=== PATIENT | male | born 1960 | race Caucasian/White ===

== ENCOUNTER → 2018-02-01 | Outpatient (REF) ==
[~2018-02-01] MED LIST: CYCL10TA29 PO; DICL-195 PO; GEMF600T91 PO; GLIP-154 PO; HYDR-4309 PO; LISI-362 PO; METF-410 PO
== END ==
LOC: AUD 11:00
PROVIDERS: ATTEND Internal Medicine
DX: Z01.10 Encounter for examination of ears and hearing without abnormal findings (principal)
CPT/HCPCS: 92552

== ENCOUNTER 2018-11-10 12:32 | Emergency (ER) | payer BC, OTHER ==
[~2018-11-10 12:32] MED LIST changes: -GEMF600T91 PO; +GEMF600T96 PO; -HYDR-4309 PO; +HYDR-653 PO; -METF-410 PO; +METF-450 PO
[2018-11-10] MEDS ORDERED: GLY5 PO (12:50)
[2018-11-10] MEDS ORDERED: METO25TA23 PO (12:50)
[2018-11-10] MEDS ORDERED: ENT KIT ONE (12:55)
--- NOTE | 2018-11-10 12:55 | ER Report ---
History and Physical Time Seen By MD: 12:54 Hx. of Stated Complaint: 2ND BLOOD NOSE TODAY, THIS EPISODE GOING FOR ALMOST 2 HOURS, PT REPORTS ONLY TAKING BABY ASPIRIN HPI/ROS CHIEF COMPLAINT: Nosebleed HISTORY OF PRESENT ILLNESS: 58-year-old male patient presents to emergency room with complaint of nosebleed. Patient states that he had a nosebleed at 5:30 this morning which he was able to get stopped using toilet paper as packing. Patient work about 10:30 and had his nose started bleeding again. He states he tried packing it he's tried lots of things but is not been able to get the bleeding stopped. Patient denies any nausea, vomiting or diarrhea. Patient states he has felt lightheaded. Patient states he does not typically get headaches like this. He hasn't taken any medication for this. REVIEW OF SYSTEMS: Respiratory: No cough, no dyspnea. Cardiovascular: No chest pain, no palpitations. Gastrointestinal: No vomiting, no abdominal pain. Musculoskeletal: No back pain. Allergies: Coded Allergies: No Known Drug Allergies (Unverified , 11/10/18) Home Meds Reported Medications Glyburide (GLYBURIDE) 5 Mg Tab, 1 TAB PO DAILY 11/10/18 Metoprolol Succinate (METOPROLOL SUCCINATE) 25 Mg Tab.er.24h, 1 TAB PO DAILY 11/10/18 Lisinopril (LISINOPRIL) 10 Mg Tablet, 10 MG PO QDAY, TAB 11/05/16 Glipizide (GLIPIZIDE) 10 Mg Tablet, 10 MG PO BID 11/05/16 Gemfibrozil (GEMFIBROZIL) 600 Mg Tablet, 600 MG PO BID 11/05/16 Metformin Hcl (METFORMIN HCL) 500 Mg Tablet, 2 TAB PO BID, TAB 11/05/16 Discontinued Scripts Hydrocodone Bit/Acetaminophen (NORCO 5-325 TABLET) 1 Each Tablet, 1 EACH PO Q4- 6H PRN for PAIN, #20 TAB Prov:GALINDO WEBER [facility] 11/05/16 Cyclobenzaprine Hcl (CYCLOBENZAPRINE HCL) 10 Mg Tablet, 5-10 MG PO TID PRN for MUSCLE SPASMS, #20 TAB Prov:GALINDO WEBER 11/05/16 Diclofenac Sodium (DICLOFENAC SODIUM) 75 Mg Tablet.dr, 75 MG PO BID, #20 TAB Prov:GALINDO WEBER 11/05/16 Past Medical/Surgical History Patient has a past medical history of hypertension, diabetes. Patient has a surgical history of surgery for plantar fasciitis. Reviewed Nurses Notes: Yes Constitutional Vital Sign - Last 24 Hours 11/10/18 11/10/18 11/10/18 11/10/18 12:44 12:46 13:00 13:15 Pulse 115 127 116 Resp 16 B/P (MAP) 145/112 145/112 (123) 144/109 (121) Pulse Ox 96 92 95 11/10/18 11/10/18 11/10/18 11/10/18 13:30 14:00 14:02 14:15 Pulse 110 110 114 B/P (MAP) 125/83 (97) 112/88 (96) Pulse Ox 90 93 90 11/10/18 11/10/18 11/10/18 11/10/18 14:30 14:45 15:00 15:15 Pulse 117 115 112 112 B/P (MAP) 124/107 (113) 107/76 (86) Pulse Ox 91 89 89 93 11/10/18 11/10/18 11/10/18 11/10/18 15:30 15:45 16:00 16:15 Pulse 115 117 107 B/P (MAP) 127/72 (90) 87/67 (74) Pulse Ox 93 91 89 90 Physical Exam General Appearance: The patient is alert, has no immediate need for airway protection and no current signs of toxicity. Initial blood pressure was 140/110. ENT: Tympanic membranes are pearly-ko, auditory canals are patent, mixed mucous membranes are moist. Patient does have blood coming out of both nostrils. I am unable to identify the source of bleeding. Respiratory: Chest is non tender, lungs are clear to auscultation. Cardiac: regular rate and rhythm Gastrointestinal: Abdomen is soft and non tender, no masses, bowel sounds normal. Musculoskeletal: Neck: Neck is supple and non tender. Extremities have full range of motion and are non tender. Skin: No rashes or lesions. DIFFERENTIAL DIAGNOSIS: After history and physical exam differential diagnosis was considered for epistaxis, hypertension. Medical Decision Making ED Course/Re-evaluation ED Course Patient was admitted to the exam room, history and physical were obtained. Differential diagnoses were considered. On examination patient does have bleeding coming from both right and left nostrils. Patient had a clamp placed and I was able to remove that and spray and Jorge-Synephrine into both nostrils. Clamp was replaced and monitored. I did note that when he lifted his head up that he did have blood became down the back of the throat. I left the clamp in place for approximately 10 minutes. I did go in and reevaluated. At that time he was having persistent bleeding, blood pressure had returned to normal, 120/80. I did spray some Jorge-Synephrine again into the nose and replaced clamp. On reeval uation the patient having persistent bleeding. At that time I did take epinephrine and aspirated on to a cottonball and placed into the left nostril. On evaluation the right nostril the mucous membranes appear to be swollen, however there does not appear to be any bleeding. I left that in place for approximately 15 minutes. I then removed it and removed a fair amount of clotting. We did monitor him for a few minutes and the bleeding started again. At that time I did replace the clamp. I did order TXA at that time. I did soak to cotton balls with 3 cc of takes a. I was placed into both nostrils and left for approximately 30 minutes. On reevaluation I was able to remove the cotton balls and patient had no bleeding. We continue to monitor him for [address] which time he had recurrence of bleeding from the left nostril. At that time a Rhino Rocket was placed. I did soak the cotton gauze on the outside of the rocket with TXA. I placed that without any difficulties and filled it up with air. Patient did have cessation of bleeding. Discharge instructions were written. Prior to discharge patient had recurrence of bleeding this time it was going out to the right nostril. I believe that was caused by bleeding around the packing. The packing itself had come loose and was replaced. Again it was soaked with TXA and replaced. Patient had cessation of bleeding again and felt that the packing was tighter. We continue to monitor him for approximately 30 more minutes during which time he did not have any bleeding. Patient will be discharged home at this time. He is return to the ER tomorrow to have the packing removed. He is to return to the emergency room sooner if he has recurrence of bleeding. Patient and his verbalized understanding and agreement with plan. Decision to Disposition Date: Nov 10, 2018 Decision to Disposition Time: 16:23 Depart Departure Latest Vital Signs Vital Signs Date Time Temp Pulse Resp B/P (MAP) Pulse Ox O2 Delivery O2 Flow Rate FiO2 11/10/18 16:15 90 11/10/18 16:00 107 87/67 (74) 11/10/18 12:44 16 Impression: Primary Impression: Epistaxis Condition: Improved Disposition: HOME OR SELF-CARE Patient Instructions: Nosebleed (ED) Additional Instructions: Leave packing in over night. Follow up tomorrow to get the packing removed. Return to the ER sooner if bleeding worsens. You may have normal diet and activity as tolerated tonight. GALINDO WEBER Nov 10, 2018 12:54
[2018-11-10] MEDS ORDERED: LABETALOL HCL 20 MG/4 ML SYR IVP ONE (13:20)
[2018-11-10] MEDS ORDERED: TRANEXAMIC AC 1000 MG/10ML SDV ONE (14:25)
[2018-11-10 16:00] VITALS: BP 87/67
[2018-11-10] MEDS ORDERED: LIDO/EPI 2% MDV 1:100,000 20ML INFIL ONE (17:40)
[2018-11-10] MEDS ORDERED: PHENYLEPHRINE 0.5% 15 ML BTL ONE (17:40)
[2018-11-10] MEDS ORDERED: EPINEPHrine 0.1% NA SOL 30 ML ONE (17:40)
== END 2018-11-10 17:14 | disposition home or self-care (01) ==
LOC: ER 12:56
DX: R04.0 Epistaxis (principal)
CPT/HCPCS: 30903; 99283

== ENCOUNTER 2018-11-12 10:48 | Emergency (ER) | payer BC ==
[~2018-11-12 10:48] MED LIST changes: +GLY5 PO; +METO25TA23 PO
--- NOTE | 2018-11-12 10:53 | ER Report ---
History and Physical Time Seen By MD: 10:53 HPI/ROS CHIEF COMPLAINT: Epistaxis HISTORY OF PRESENT ILLNESS: 58-year-old male patient presents to emergency room with complaint of epistaxis. Patient was seen here on . He states that he did well with a packing and takes a, however the packing fell out night. He states that he had persistent dripping throughout the day, which would come and go. He states that starting at 3:00 this morning the bleeding returned and was significant. Patient states that he has not been able to get the bleeding stopped, he denies having fevers chills or nausea. Patient denies any trauma to the nose. REVIEW OF SYSTEMS: Respiratory: No cough, no dyspnea. Cardiovascular: No chest pain, no palpitations. Gastrointestinal: No vomiting, no abdominal pain. Musculoskeletal: No back pain. Allergies: Coded Allergies: No Known Drug Allergies (Unverified , 11/12/18) Home Meds Active Scripts Cephalexin 500 Mg Tab (KEFLEX 500 MG TAB) 500 Mg Tablet, 500 MG PO Q6H, #28 TAB Prov:GALINDO WEBER 11/12/18 Reported Medications Glyburide (GLYBURIDE) 5 Mg Tab, 1 TAB PO DAILY 11/10/18 Metoprolol Succinate (METOPROLOL SUCCINATE) 25 Mg Tab.er.24h, 1 TAB PO DAILY 11/10/18 Lisinopril (LISINOPRIL) 10 Mg Tablet, 10 MG PO QDAY, TAB 11/05/16 Glipizide (GLIPIZIDE) 10 Mg Tablet, 10 MG PO BID 11/05/16 Gemfibrozil (GEMFIBROZIL) 600 Mg Tablet, 600 MG PO BID 11/05/16 Metformin Hcl (METFORMIN HCL) 500 Mg Tablet, 2 TAB PO BID, TAB 11/05/16 Discontinued Scripts Hydrocodone Bit/Acetaminophen (NORCO 5-325 TABLET) 1 Each Tablet, 1 EACH PO Q4- 6H PRN for PAIN, #20 TAB Prov:GALINDO WEBER 11/05/16 Cyclobenzaprine Hcl (CYCLOBENZAPRINE HCL) 10 Mg Tablet, 5-10 MG PO TID PRN for MUSCLE SPASMS, #20 TAB Prov:GALINDO WEBER 11/05/16 Diclofenac Sodium (DICLOFENAC SODIUM) 75 Mg Tablet.dr, 75 MG PO BID, #20 TAB Prov:GALINDO WEBER [facility] 11/05/16 Past Medical/Surgical History Patient has a past medical history of hypertension, diabetes. Patient has a surgical history of surgery for plantar fasciitis. Reviewed Nurses Notes: Yes Constitutional Vital Sign - Last 24 Hours 11/12/18 11/12/18 11/12/18 11/12/18 10:48 10:51 10:52 11:00 Pulse 135 127 Resp 18 20 B/P (MAP) 116/76 116/76 (89) 100/74 (83) Pulse Ox 95 91 11/12/18 11/12/18 11/12/18 11/12/18 11:15 11:18 11:30 11:45 Pulse 116 Resp 11 B/P (MAP) 109/71 (84) 88/77 (81) 96/54 (68) Pulse Ox 92 11/12/18 11/12/18 11/12/18 11/12/18 11:46 11:50 12:00 12:05 Pulse 111 112 111 Resp 12 32 18 B/P (MAP) 87/66 (73) Pulse Ox 95 98 94 11/12/18 11/12/18 11/12/18 11/12/18 12:15 12:20 12:25 12:30 Pulse 115 110 Resp 12 24 B/P (MAP) 92/79 (83) 97/67 (77) Pulse Ox 96 96 11/12/18 11/12/18 11/12/18 11/12/18 12:40 12:45 12:55 13:00 Pulse 100 98 Resp 31 15 B/P (MAP) 103/65 (78) 103/58 (73) Pulse Ox 93 94 11/12/18 11/12/18 11/12/18 11/12/18 13:10 13:15 13:22 13:27 Pulse 95 118 109 Resp 9 18 17 B/P (MAP) 96/65 (75) Pulse Ox 95 85 94 11/12/18 11/12/18 11/12/18 13:30 13:35 13:42 Pulse 103 Resp 13 11 B/P (MAP) 79/57 (64) 86/62 (70) Pulse Ox 94 94 Physical Exam General Appearance: The patient is alert, has no immediate need for airway protection and no current signs of toxicity. ENT: Patient has significant bleeding from the left nares. Respiratory: Chest is non tender, lungs are clear to auscultation. Cardiac: regular rhythm, patient is tachycardic at 117 bpm Gastrointestinal: Abdomen is soft and non tender, no masses, bowel sounds nor mal. Musculoskeletal: Neck: Neck is supple and non tender. Extremities have full range of motion and are non tender. Skin: No rashes or lesions. DIFFERENTIAL DIAGNOSIS: After history and physical exam differential diagnosis was considered for epistaxis, I was likely a posterior epistaxis due to the difficulty we've had with getting the bleeding stopped. Medical Decision Making Data Points Result Diagram: 11/12/18 1115 Laboratory Hematology Test 11/12/18 11:15 Red Blood Count 3.06 M/uL (4.00-5.60) Mean Corpuscular Volume 109.8 fL (80.0-96.0) Mean Corpuscular Hemoglobin 38.4 pg (26.0-33.0) Mean Corpuscular Hemoglobin Concent 35.0 g/dL (32.0-36.0) Red Cell Distribution Width 13.1 % (11.5-14.5) Mean Platelet Volume 9.1 fL (7.2-11.1) Neutrophils (%) (Auto) 77.6 % (39.4-72.5) Lymphocytes (%) (Auto) 15.4 % (17.6-49.6) Monocytes (%) (Auto) 5.9 % (4.1-12.4) Eosinophils (%) (Auto) 0.4 % (0.4-6.7) Basophils (%) (Auto) 0.7 % (0.3-1.4) Nucleated RBC Relative Count (auto) 0.0 /100WBC Neutrophils # (Auto) 14.1 K/uL (2.0-7.4) Lymphocytes # (Auto) 2.8 K/uL (1.3-3.6) Monocytes # (Auto) 1.1 K/uL (0.3-1.0) Eosinophils # (Auto) 0.1 K/uL (0.0-0.5) Basophils # (Auto) 0.1 K/uL (0.0-0.1) Nucleated RBC Absolute Count (auto) 0.00 K/uL Prothrombin Time 13.9 seconds (12.0-14.4) Prothromb Time International Ratio 1.07 Activated Partial Thromboplast Time 29 seconds (23-35) Chemistry Test 11/12/18 11:15 White Blood Count 18.2 k/uL (4.5-11.0) Red Blood Count 3.06 M/uL (4.00-5.60) Hemoglobin 11.8 g/dL (14.0-18.0) Hematocrit 33.6 % (42.0-52.0) Mean Corpuscular Volume 109.8 fL (80.0-96.0) Mean Corpuscular Hemoglobin 38.4 pg (26.0-33.0) Mean Corpuscular Hemoglobin Concent 35.0 g/dL (32.0-36.0) Red Cell Distribution Width 13.1 % (11.5-14.5) Platelet Count 179 K/uL (150-450) Mean Platelet Volume 9.1 fL (7.2-11.1) Neutrophils (%) (Auto) 77.6 % (39.4-72.5) Lymphocytes (%) (Auto) 15.4 % (17.6-49.6) Monocytes (%) (Auto) 5.9 % (4.1-12.4) Eosinophils (%) (Auto) 0.4 % (0.4-6.7) Basophils (%) (Auto) 0.7 % (0.3-1.4) Nucleated RBC Relative Count (auto) 0.0 /100WBC Neutrophils # (Auto) 14.1 K/uL (2.0-7.4) Lymphocytes # (Auto) 2.8 K/uL (1.3-3.6) Monocytes # (Auto) 1.1 K/uL (0.3-1.0) Eosinophils # (Auto) 0.1 K/uL (0.0-0.5) Basophils # (Auto) 0.1 K/uL (0.0-0.1) Nucleated RBC Absolute Count (auto) 0.00 K/uL Prothrombin Time 13.9 seconds (12.0-14.4) Prothromb Time International Ratio 1.07 Activated Partial Thromboplast Time 29 seconds (23-35) Coagulation Test 11/12/18 11:15 Prothrombin Time 13.9 seconds Prothromb Time International Ratio 1.07 Activated Partial Thromboplast Time 29 seconds ED Course/Re-evaluation ED Course Patient was admitted to exam room, history and physical were obtained. Differential diagnoses were considered. On examination patient did have significant amounts of blood draining out of the left nostril. With the extremes ahead with him on and the challenges to get the bleeding stopped I did pack his nose with cotton balls the refused with TXA. I left those in place, an IV was started and patient received 2 L of normal saline, a CBC and PT, PTT were done. Patient had an elevated white count of 18,000, he was very slightly anemic with a hemoglobin of 11. INR was 1.04. We'll get those results back a did discuss the case with Dr. Tsang, ENT at [facility]. It was his recommendation to place 2 of the Rhino Rocket in the nose that expand his of the source fluid. He then recommended that I infused denies use with Jorge-Synephrine to help with getting the expansion of the packing. That was done and we were able to get the bleeding under control. I monitored the patient for an hour. During that time he had no recurrence of the bleeding. I did get him up and have him walk around the unit again with no recurrence of the bleeding. Patient did have intermittent low blood pressures. Patient was not dizzy and did not have any chest pain. Patient was discharged home. They're to return with any worsening of his condition. Patient and verbalized understanding and agreement. They're to follow-up with Dr. Tsang down in [place] or Dr. Baker here in [place]. They're given both of their phone numbers. Decision to Disposition Date: Nov 12, 2018 Decision to Disposition Time: 13:26 Depart Departure Latest Vital Signs Vital Signs Date Time Temp Pulse Resp B/P (MAP) Pulse Ox O2 Delivery O2 Flow Rate FiO2 11/12/18 13:42 103 11/12/18 13:35 11 86/62 (57) 94 Impression: Primary Impression: Epistaxis Condition: Improved Disposition: HOME OR SELF-CARE Referrals: LETY NEAL (PCP) New Scripts Cephalexin 500 Mg Tab (KEFLEX 500 MG TAB) 500 Mg Tablet 500 MG PO Q6H, #28 TAB Prov: GALINDO WEBER 11/12/18 Patient Instructions: Nosebleed (ED) Additional Instructions: Follow up with Dr. Tsang on Wednesday to get the packing removed from your nose. Return to the ER if you have any bleeding that restarts. Get plenty of rest today and tomorrow. Get plenty of fluids today and you can eat as tolerated. Dr. Tsang [address] [place], [place] [address] to make an appointment before heading to [place]. GALINDO WEBER Nov 12, 2018 10:53
[2018-11-12] MEDS ORDERED: ENT KIT ONE (10:57)
[2018-11-12] MEDS ORDERED: TRANEXAMIC AC 1000 MG/10ML SDV ONE (10:58)
[2018-11-12] MEDS ORDERED: NS(*) 0.9% 1000 ML BAG 1,000 ML IV ONE ×2 (11:05→12:45)
[2018-11-12 11:26] LABS: PLATELET COUNT, AUTOMATED 179 K/uL (150-450)
[2018-11-12 11:42] LABS: INR 1.07
[2018-11-12] MEDS ORDERED: CEPHALEXIN MONO 500 MG CAP PO ONE (13:00)
[2018-11-12] MEDS ORDERED: CEPH500T7 PO (13:23)
[2018-11-12 13:35] VITALS: BP 86/62
== END 2018-11-12 13:46 | disposition home or self-care (01) ==
LOC: ER 10:55
DX: R04.0 Epistaxis (principal)
CPT/HCPCS: 30901; 85025; 85610; 85730; 96360; 99283; J7030

== ENCOUNTER 2018-11-12 15:59 | Emergency (ER) | payer BC ==
[~2018-11-12 15:59] MED LIST changes: +CEPH500T7 PO
[2018-11-12 16:08] VITALS: BP 104/75
--- NOTE | 2018-11-12 16:27 | ER Report ---
History and Physical Time Seen By MD: 16:20 Hx. of Stated Complaint: NOSE BLEED HPI/ROS CHIEF COMPLAINT: nosebleed, cough with blood HISTORY OF PRESENT ILLNESS: Pt returns after being evaluated here earlier today, noted to have ant nosebleed, and packing placed left nare. Pt was lying down at home and began coughing, coughed up blood clot and noted blood draining from non packed right nare. He has not had subsequent events or persistent bleeding. He notes no lightheadedness, chest pain, sob, fatigue, weakness. REVIEW OF SYSTEMS: Respiratory: above Cardiovascular: No chest pain, no palpitations. Gastrointestinal: No vomiting, no abdominal pain. Musculoskeletal: No back pain. Remainder of the 14 system rev: Yes Allergies: Coded Allergies: No Known Drug Allergies (Unverified , 11/12/18) Home Meds Active Scripts Cephalexin 500 Mg Tab (KEFLEX 500 MG TAB) 500 Mg Tablet, 500 MG PO Q6H, #28 TAB Prov:GALINDO WEBER 11/12/18 Reported Medications Glyburide (GLYBURIDE) 5 Mg Tab, 1 TAB PO DAILY 11/10/18 Metoprolol Succinate (METOPROLOL SUCCINATE) 25 Mg Tab.er.24h, 1 TAB PO DAILY 11/10/18 Lisinopril (LISINOPRIL) 10 Mg Tablet, 10 MG PO QDAY, TAB 11/05/16 Glipizide (GLIPIZIDE) 10 Mg Tablet, 10 MG PO BID 11/05/16 Gemfibrozil (GEMFIBROZIL) 600 Mg Tablet, 600 MG PO BID 11/05/16 Metformin Hcl (METFORMIN HCL) 500 Mg Tablet, 2 TAB PO BID, TAB 11/05/16 Discontinued Scripts Hydrocodone Bit/Acetaminophen (NORCO 5-325 TABLET) 1 Each Tablet, 1 EACH PO Q4- 6H PRN for PAIN, #20 TAB Prov:GALINDO WEBER 11/05/16 Cyclobenzaprine Hcl (CYCLOBENZAPRINE HCL) 10 Mg Tablet, 5-10 MG PO TID PRN for MUSCLE SPASMS, #20 TAB Prov:GALINDO WEBER 11/05/16 Diclofenac Sodium (DICLOFENAC SODIUM) 75 Mg Tablet.dr, 75 MG PO BID, #20 TAB Prov:GALINDO WEBER 11/05/16 Constitutional Vital Sign - Last 24 Hours 11/12/18 16:08 Temp 98.3 Pulse 112 Resp 14 B/P (MAP) 104/75 Pulse Ox 88 O2 Delivery Room Air Physical Exam General Appearance: The patient is alert, has no immediate need for airway protection and no current signs of toxicity. Eyes: Pupils equal and round no injection. Left nare packed without e/o active bleeding. Packing in place. Right nare; sm amount of crusted blood noted in vestibule without e/o active bleeding or apparent source R nare OP - no e/o active bldg post pharynx. Post pharynx and tongue mild staining from bleeding. DIFFERENTIAL DIAGNOSIS: After history and physical exam differential diagnosis was considered for ongoing epistaxis, true hemoptysis, coagulopathy or other emergent etiology. Medical Decision Making ED Course/Re-evaluation ED Course Pt returns for concern fro continued epistaxis but has no e/o ongoing bleed; likely has regurgitated blood clot from prior to packing. We discussed at length sigs/sypmtoms and pt admits he came out of caution; agrees to rtn for worsening symptoms or concerns. Decision to Disposition Date: Nov 12, 2018 Decision to Disposition Time: 16:30 Depart Departure Latest Vital Signs Vital Signs Date Time Temp Pulse Resp B/P (MAP) Pulse Ox O2 Delivery O2 Flow Rate FiO2 11/12/18 16:08 98.3 112 14 104/75 88 Room Air Impression: Primary Impression: Hemoptysis Condition: Improved Disposition: HOME OR SELF-CARE Referrals: LETY NEAL (PCP) Additional Instructions: As we discussed, you made the right decision in returning to be checked. If you do not feel any blood draining back from your nose, it is unlikely that you are having ongoing bleed, and the blood clot was likely from before you were packed. Please return if you note any bleeding, have any trouble breathing, vomiting blood, or any concerns. ASIM HARRIS MD Nov 12, 2018 16:27
== END 2018-11-12 16:37 | disposition home or self-care (01) ==
LOC: ER 16:23
DX: R04.2 Hemoptysis (principal)
CPT/HCPCS: 99281

== ENCOUNTER → 2019-02-09 | Outpatient (REF) | LOC: AUD 08:45 | PROVIDERS: ATTEND Nurse Practitioner Family | DX: Z01.12 Encounter for hearing conservation and treatment (principal) | CPT/HCPCS: 92552 ==